=== PATIENT | male | born 1970 | race Caucasian/White ===

== ENCOUNTER 2022-03-28 11:40 | Outpatient (REF) | payer BC, SELFPAY ==
--- NOTE | ~2022-03-28 | XR_ITS ---
EXAMINATION: XR KNEE, RIGHT CLINICAL INFORMATION: Pain. COMPARISON: Radiograph dated 04/01/2012. TECHNIQUE: AP, lateral, tunnel, and sunrise views of the right knee. FINDINGS: Bony alignment and mineralization are normal. There is mild asymmetric narrowing of the medial joint space compartment. The lateral and patellofemoral joint space compartments are well-maintained. There is very mild tricompartment peripheral osteophyte formation. No fracture or dislocation is seen. There is a very small joint effusion. No foreign body is seen. XR/XR knee RT 4V IMPRESSION: 1. There is tricompartment osteoarthritic change of the right knee, most pronounced in the medial joint, where it is mild. 2. No fracture or dislocation is seen. There is a very small right knee joint effusion. 3. No significant varus or valgus configuration is seen bilaterally.
[2022-03-28 13:13] LABS: MANUAL DIFF FLAG NO
[2022-03-28 13:18] LABS: Basophils Percent Auto 0.3 % (0-2); Eosinophils Absolute Auto 0.1 X10*3/uL (0.0-0.4); Eosinophils Percent Auto 1.2 % (0-4); Hemoglobin 14.4 g/dl (14.0-18.0); Imm Gran Abs Auto 0.01 X10*3/uL (0.00-0.03); Imm Gran Pct Auto 0.2 % (0.0-0.4); Lymphocytes Absolute Auto 1.1 X10*3/uL (1.2-4.9); Lymphocytes Percent Auto 19.5 % (20-40); Mean Corpuscular HGB Conc 33.5 g/dl (31.0-36.0); Mean Corpuscular Hemoglobin 33.4 pg (27.0-33.0); Mean Corpuscular Volume 99.8 fL (80.0-98.0); Monocytes Absolute Auto 0.8 X10*3/uL (0.1-1.2); Neutrophils Absolute Auto 3.8 x10*3/uL (2.0-8.3); Neutrophils Percent Auto 65.8 % (45-73); Platelet Count 186 X10*3/uL (160-400); Red Blood Count 4.31 X10*6/uL (4.60-5.80); White Blood Count 5.8 X10*3/uL (4.8-10.8)
[2022-03-28 13:21] LABS: Appearance Urine Clear; Color Urine Yellow; Glucose Urine UA Negative (Negative); Leukocyte Esterase Urine Trace (Negative); Nitrite Urine Negative (Negative); PH 7.5 (5.0-9.0); UMIC TRIGGER UA YES; Urine Blood Negative (Negative); Urine Ketones 15 mg/dL (Negative); Urine Protein 100 (2+) mg/dL (Neg-Trace)
[2022-03-28 13:26] LABS: Bacteria Urine None Seen (None Seen); Hyaline Casts Urine 0-2 /LPF (0-2); RBC Urine 0-2 /HPF (0-2); Squamous Epithelial Cell Urine 0-2 /HPF (0-2); WBC Urine 0-5 /HPF (0-5)
[2022-03-28 14:05] LABS: Alanine Aminotransferase 116 U/L (0-40); Alkaline Phosphatase 54 U/L (39-117); Anion Gap 21 (12-20); Aspartate Amino Transferase 76 U/L (5-37); Blood Urea Nitrogen 14 mg/dL (9-16); Carbon Dioxide 24 mmol/L (22-29); Chloride 98 mmol/L (96-108); Cholesterol 315 mg/dL; Estimated Glomerular Filt Rate > 60; Glucose Fasting 94 mg/dL (60-99); HDL Cholesterol 97 mg/dL; LDL Cholesterol Calculated 204 mg/dl; Potassium 4.8 mmol/L (3.3-5.1); Sodium 138 mmol/L (135-145); Total Protein 7.4 g/dL (6.5-8.0); Triglycerides 70 mg/dL
[2022-03-28 14:14] LABS: Prostate Specific Antigen 0.89 ng/mL (<0.05-4.0)
== END 2022-03-28 11:41 | disposition home or self-care (01) ==
LOC: HO.HMGCLDS 11:40
PROVIDERS: Visit Provider Internal Medicine
DX: Z00.00 Encounter for general adult medical examination without abnormal findings (principal); Z12.5 Encounter for screening for malignant neoplasm of prostate; M25.561 Pain in right knee
CPT/HCPCS: 36415; 73564; 80053; 80061; 81001; 84153; 85025

== ENCOUNTER 2022-04-08 08:18 | Outpatient (REF) | payer BC, SELFPAY ==
--- NOTE | ~2022-04-08 | US_ITS ---
EXAMINATION: US ABDOMEN COMPLETE CLINICAL INFORMATION: Elevated LFTs. COMPARISON: Ultrasound abdomen complete 06/26/2015. CT abdomen and pelvis without contrast 04/21/2012. TECHNIQUE: Real-time imaging of the abdominal viscera. FINDINGS: PANCREAS: Normal. ABDOMINAL AORTA: The proximal, mid, and distal segments are normal in caliber. INFERIOR VENA CAVA: Visualized portions are normal. LIVER: The liver is normal in size. The liver contour is normal. There is diffuse increased liver parenchymal echogenicity, consistent with hepatic steatosis. No focal hepatic lesion. There is no intrahepatic biliary duct dilatation seen. GALLBLADDER: Gallbladder polyp. It is noted measuring about 3 mm in size. The gallbladder is physiologically distended without evidence of stones, sludge, wall thickening or pericholecystic fluid. COMMON BILE DUCT: Normal in caliber measuring 0.7 cm in diameter. RIGHT KIDNEY: Normal. No hydronephrosis. No renal calculi or focal parenchymal lesions. The kidney measures 11.8 cm in maximum dimension. LEFT KIDNEY: Normal. No hydronephrosis. No renal calculi or focal parenchymal lesions. The kidney measures 12.1 cm in maximum dimension. SPLEEN: Normal. The spleen measures 10.4 cm in maximum dimension. FREE FLUID: None. US/US abdomen complete IMPRESSION: 3 mm gallbladder polyp. Hepatic steatosis. In the low-risk category, no followup is recommended for polyps of 6 mm or smaller; followup US at 12 months is recommended for polyps measuring 7?9 mm; followup US at 6, 12, 24, and 36 months is recommended for polyps measuring 10?14 mm; and surgical consultation is recommended for polyps of 15 mm or larger.
== END 2022-04-08 08:19 | disposition home or self-care (01) ==
LOC: HO.HMGCX 08:18
PROVIDERS: Visit Provider Internal Medicine
DX: R74.01 Elevation of levels of liver transaminase levels (principal)
CPT/HCPCS: 76700

== ENCOUNTER 2022-05-07 09:48 | Outpatient (REF) | payer BC, SELFPAY ==
--- NOTE | ~2022-05-07 | XR_ITS ---
EXAMINATION: XR KNEE AP STANDING CLINICAL INFORMATION: Pain. COMPARISON: None available. TECHNIQUE: AP bilateral standing view of the knees was obtained. FINDINGS: Bony mineralization is normal. There is mild to moderate narrowing of the bilateral medial joint space compartments, and the bilateral lateral joint space compartments are well-maintained. There is a mild bilateral varus configuration. No fracture or dislocation is seen. The soft tissue planes are unremarkable, without gas or foreign body. XR/XR knee standing BI IMPRESSION: There is mild to moderate degenerative change of the medial joint space compartments of the bilateral knees. There is a secondary mild bilateral varus configuration.
== END 2022-05-07 09:49 | disposition home or self-care (01) ==
LOC: HO.HOSX 09:48
PROVIDERS: Visit Provider Physician Assistant
DX: M23.91 Unspecified internal derangement of right knee (principal); M17.11 Unilateral primary osteoarthritis, right knee
CPT/HCPCS: 73565

== ENCOUNTER 2022-05-27 14:23 | Outpatient (REF) | payer BC, SELFPAY ==
--- NOTE | ~2022-05-27 | MR_ITS ---
EXAMINATION: MR KNEE WITHOUT CONTRAST, RIGHT CLINICAL INFORMATION: Internal derangement. Patient reports meniscal surgery 10 years prior. COMPARISON: X-rays of the right knee April 2022. MRI of the right knee September 2012 and February 2012. TECHNIQUE: MRI of the knee without contrast was performed using routine sequences on a high-field scanner. FINDINGS: MENISCI: Medial Meniscus: There is attenuation of the body and posterior horn. There is some increased linear signal near the free edge of the posterior horn possibly extending to the free edge/articular surface. This could reflect postsurgical result but cannot exclude recurrent tear. This is not seen previously. Lateral Meniscus: Intact. LIGAMENTS: Cruciate: Intact. There is some enthesopathic cystic change with minimal edema in the tibia at the posterior cruciate ligament attachment. This is likely without clinical significance. Collateral: Intact. EXTENSOR MECHANISM: Intact. ARTICULAR CARTILAGE/BONE: Patellofemoral Compartment: Minimal surface cartilage heterogeneity in the median ridge of the patella and proximal trochlea indicative of minimal arthrosis unchanged. Medial Compartment: There are marginal osteophytes. There is cartilage thinning in the central weightbearing portion of the compartment particularly on the tibial side with some associated subchondral cystic change and edema. There is signal void within this area of articular loss compatible with gas likely reflecting vacuum phenomena. Findings indicative of rdin-os-dargscel arthrosis. Lateral Compartment: Normal. JOINT FLUID AND BURSAE: Normal. MR/MR knee RT wo con IMPRESSION: 1. Postsurgical changes in the medial meniscus. Findings suspicious but not definitive for recurrent tear of posterior horn. 2. Minimal patellofemoral arthrosis unchanged. 3. Goge-na-vytyibnf arthrosis of the medial compartment progressed compared to prior MRI September 2012, also identified on recent x-rays.
--- NOTE | ~2022-05-27 | XR_ITS ---
EXAMINATION: CR XR pre-MRI screening CLINICAL INFORMATION: Pre-MRI COMPARISON: None. TECHNIQUE: 3 views of the orbits FINDINGS: No radiopaque soft tissue foreign body about the orbits is seen. Visualized bony structures are unremarkable.. Hypoplasia of the left frontal sinus. XR/XR pre mri screening IMPRESSION: No radiopaque soft tissue foreign body.
== END 2022-05-27 14:24 | disposition home or self-care (01) ==
LOC: HO.MRI 14:23
PROVIDERS: PCP Internal Medicine; Visit Provider Physician Assistant
DX: M23.91 Unspecified internal derangement of right knee (principal)
CPT/HCPCS: 73721

== ENCOUNTER → 2022-06-10 14:12 | Outpatient (BNVA) | payer BC, SELFPAY | PROVIDERS: PCP Internal Medicine; Visit Provider Physician Assistant | DX: M23.91 Unspecified internal derangement of right knee (principal); M17.11 Unilateral primary osteoarthritis, right knee | CPT/HCPCS: 20610; J1040 ==

== ENCOUNTER 2022-11-11 11:15 | Outpatient (REF) | payer BC, SELFPAY ==
[2022-11-11 13:11] LABS: MANUAL DIFF FLAG NO
[2022-11-11 13:26] LABS: Basophils Percent Auto 0.4 % (0-2); Eosinophils Absolute Auto 0.1 X10*3/uL (0.0-0.4); Eosinophils Percent Auto 1.8 % (0-4); Hematocrit 42.6 % (42.0-52.0); Hemoglobin 14.5 g/dl (14.0-18.0); Imm Gran Abs Auto 0.02 X10*3/uL (0.00-0.03); Imm Gran Pct Auto 0.4 % (0.0-0.4); Lymphocytes Absolute Auto 1.2 X10*3/uL (1.2-4.9); Lymphocytes Percent Auto 21.2 % (20-40); Mean Corpuscular Hemoglobin 33.8 pg (27.0-33.0); Mean Corpuscular Volume 99.3 fL (80.0-98.0); Mean Platelet Volume 10.4 fL (9.4-12.4); Monocytes Absolute Auto 0.7 X10*3/uL (0.1-1.2); Monocytes Percent Auto 11.9 % (2-11); Neutrophils Absolute Auto 3.6 x10*3/uL (2.0-8.3); Neutrophils Percent Auto 64.3 % (45-73); Platelet Count 216 X10*3/uL (160-400); Red Blood Count 4.29 X10*6/uL (4.60-5.80); Red Cell Distribution Width 13.2 % (11.0-16.0); White Blood Count 5.6 X10*3/uL (4.8-10.8)
[2022-11-11 13:29] LABS: INTERNATIONAL NORM RATIO 0.8 (0.9-1.1); Prothrombin Time 10.2 SEC (11.1-13.3)
[2022-11-11 14:07] LABS: Alanine Aminotransferase 80 U/L (0-40); Albumin Level 4.9 g/dL (3.5-5.0); Alkaline Phosphatase 57 U/L (39-117); Aspartate Amino Transferase 62 U/L (5-37); Bilirubin Direct 0.2 mg/dL (0.0-0.5); Bilirubin Total 0.6 mg/dL (0.0-1.0); Iron 107 mcg/dL (45-160); Percent Iron Saturation 38 % (15-50); Total Iron Binding Capacity 279 mcg/dL (228-428); Total Protein 7.8 g/dL (6.5-8.0); Unsaturated Iron Binding 172 ug/dL
[2022-11-11 14:28] LABS: Ferritin 590 ng/mL (20-250)
[2022-11-12 08:54] LABS: Hepatitis A Antibody IgG REACTIVE (Nonreactive); ~Hepatitis A Antibody IgG 3.68 S/CO (0.00-0.99)
[2022-11-12 09:07] LABS: HBS Num1 2.61 mIU/mL (0-7.99); HBc Num1 0.08 S/CO (0.00-0.79); HBsAGNum1 0.37 S/CO (0.00-0.99); Hepatitis B Core Antibody Nonreactive (Nonreactive); Hepatitis B Surface Antigen Negative (Negative); ~HepC Num1 0.04 S/CO (0.00-0.79); ~Hepatitis B Surface Antibody NONREACTIVE (Nonreactive); ~Hepatitis C Antibody Nonreactive (Nonreactive)
[2022-11-12 17:13] LABS: Alpha 1 Anti-trypsin 140 mg/dL (83-199)
[2022-11-16 11:49] LABS: Anti Nuclear Antibody Screen NEGATIVE (NEGATIVE)
[2022-11-16 12:24] LABS: Smooth Muscle Antibody <20 U (<20)
[2022-11-17 00:09] LABS: FIB-ALT 69 U/L (9-46); FIB-Alpha-2-Macroglobulin 140 mg/dL (106-279); FIB-Apolipoprotein A1 250 mg/dL (94-176); FIB-GGT 77 U/L (3-95); FIB-Haptoglobin 157 mg/dL (43-212); FIB-Total Bilirubin 0.4 mg/dL (0.2-1.2); Liver Fibrosis Score 0.05; Liver Fibrosis Stage F0; Nec Inflam Act Grade A1; Nec Inflam Act Score 0.32
[2022-11-18 12:48] LABS: Mitochondrial Antibodies NEGATIVE (NEGATIVE)
== END 2022-11-11 11:16 | disposition home or self-care (01) ==
LOC: HO.HMGCLDS 11:15
PROVIDERS: PCP Internal Medicine; Visit Provider Internal Medicine
DX: R79.89 Other specified abnormal findings of blood chemistry (principal); K76.0 Fatty (change of) liver, not elsewhere classified
CPT/HCPCS: 36415; 80076; 81596; 82103; 82728; 83540; 85025; 85610; 86015; 86038; 86381; 86704; 86706; 86708; 86803; 87340

== ENCOUNTER 2023-01-04 09:22 | Day surgery (SDC) | payer BC, SELFPAY ==
[2022-12-31 14:39] VITALS: BMI 36.2
--- NOTE | 2023-01-04 09:11 | HO.ANESPROP2 ---
[facility] Active Problems Active Problems: All Active Problems (Updated 12/31/22 @ 14:38 by Katia Escamilla RN) Osteoarthritis of right knee (Acute) Internal derangement of right knee (Acute) Past Medical History Medical History Atrial fibrillation History of retained foreign body fully removed Hypertension Functional capacity: independent ambulation Family History Family history of problems with anesthesia: No Surgical History Surgical History Hx of arthroscopy of left knee History of cardiac radiofrequency ablation Hx of appendectomy Hx of right knee surgery History of Problems with Anesthesia: No Social History Social History Patient Tobacco Use Status: Former Tobacco user Quit Date: 30 yrs ago Tobacco use type: Cigarette Current occupational status: employed Current occupation: [employer] Meds Allergies Allergy/AdvReac Type Severity Reaction Status Date / Time No Known Allergies Allergy Verified 01/04/23 09:40 Active Medications: Current Medications Lactated Ringer's (Lr) 1,000 mls @ 50 mls/hr IVCONT .Q20H BLAYNE Home Medications Medication Instructions Recorded Confirmed Last Taken Type amlodipine 5 mg tablet 5 mg PO DAILY 05/07/22 12/31/22 01/04/23 09:00 History diltiazem HCl 360 mg 360 mg PO DAILY 05/07/22 12/31/22 Unknown History capsule,extended release 24 hr flecainide 100 mg tablet 100 mg PO Q12H 05/07/22 12/31/22 Unknown History aspirin 81 mg tablet,delayed 81 mg PO DAILY 12/31/22 12/31/22 12/25/22 History release multivitamin 1 tab PO DAILY 12/31/22 12/31/22 Unknown History Fish Oil PO 01/04/23 12/30/22 History Vitamin C 01/04/23 Unknown History apple cider vinegar 01/04/23 Unknown History magnesium glycinate 100 mg tablet 100 mg PO DAILY 01/04/23 01/04/23 Unknown History milk thistle 200 mg capsule 200 mg PO BID 01/04/23 01/04/23 Unknown History vitamin D3-vitamin K2 PO DAILY 01/04/23 Unknown History zinc 20 mg PO DAILY 01/04/23 01/04/23 Unknown History Exam Exam Date and Time: January 04, 2023 0911 Height,Weight and Vital Signs: Height 5 ft 6 in Weight 101.605 kg Airway Mallampati Class: II TM Dist: >3cm Neck ROM: Full Heart: RRR Assessment and Plan Assessment Anesthesia Assessment: Anesthesia Plan Discussed Final Anesthetic Review Family History of Problems with Anesthesia: No History of Problems with Anesthesia: No NPO: Yes ASA Class: III Final Preanesthetic Review: Meds/Allgs Chart Reviewed, Consent Obtained/Reviewed and Anes Risks/Benef Reviewed Patient Risk: Low Procedure Risk: Low Anesthetic Plan Anesthetic Plan: MAC: Disposition: Standard PACU
[2023-01-04 09:59] VITALS: BP 170/103; PULSE 85; RESP 16; TEMP 35.9; O2SAT 98
[2023-01-04 10:55] VITALS: BP 117/79; PULSE 81; RESP 16; TEMP 36.3; O2SAT 96
--- NOTE | 2023-01-04 10:56 | P.BOP_ITS ---
Brief Operative Note Date of Service: 01/04/23 Pre-op diagnosis: Screening Post-op diagnosis: other (Diverticulosis, Normal ileocolic anastomosis) Procedure: Colonoscopy to the anastomosis and SI Surgeon: Eddi Forbes MD Anesthesia: MAC Was an [employer] used for this Procedure?: No Estimated blood loss (mL): 0 Pathology: none sent Condition: stable Disposition: PACU
[2023-01-04 11:10] VITALS: BP 148/99; PULSE 70; RESP 16; O2SAT 96
--- NOTE | 2023-01-04 11:17 | OP_ITS ---
DATE OF SERVICE: 01/04/2023 SURGEON: Eddi Forbes MD INDICATIONS: The patient presents for evaluation of colorectal cancer screening. Full consent has been obtained from him for this, including risks of bleeding and perforation. PREOPERATIVE DIAGNOSIS: Colorectal cancer screening. POSTOPERATIVE DIAGNOSIS: PROCEDURE PERFORMED: Colonoscopy to the anastomosis and small bowel. ESTIMATED BLOOD LOSS: COMPLICATIONS: ANESTHESIA: Monitored anesthesia care. ASSISTANTS: SPECIMENS: POSTOPERATIVE DIAGNOSES: Colorectal cancer screening, sigmoid diverticulosis, internal hemorrhoids, normal ileocolic anastomosis. DESCRIPTION OF PROCEDURE: The patient was placed in the left lateral decubitus position. The digital rectal exam revealed no abnormalities. The Olympus video pediatric colonoscope was entered into the rectum and advanced easily to the level of the anastomosis. The anastomosis appeared normal. The small bowel was cannulated and appeared normal. The scope was withdrawn back in the colon. The entire anastomosis appeared normal. The scope was slowly withdrawn assessing all mucosal surfaces carefully. Preparation was excellent. I did not visualize any sign of polyps, colitis, nor angiodysplasia. There was a mild amount of sigmoid diverticulosis. In the rectum, scope was retroflexed visualizing small internal hemorrhoids but no other pathology. The rectal mucosa appeared normal. The scope was straightened and withdrawn from the patient. He tolerated the procedure well and was returned to the recovery area in stable condition. IMPRESSION: 1. Mild sigmoid diverticulosis. 2. Internal hemorrhoids. 3. Normal ileocolic anastomosis. PLAN: Given today's negative exam, I would recommend a followup coloscopy in 10 years. His recent liver workup was completely negative. I did review with him that his elevated LFTs are from fatty liver in relation to his weight and some alcohol use. He was advised to obviously try to avoid alcohol and lose weight. I would recommend he see me in 1 year for a followup visit in that regard. This has been discussed with his . MD ILIR Pierre/KVNG / [id number]
[2023-01-04 11:25] VITALS: BP 147/98; PULSE 63; RESP 18; TEMP 36.5; O2SAT 96
--- NOTE | 2023-01-04 12:53 | HO.POSTANES ---
Post Anesthesia Evaluation Post Anesthesia Evaluation Date of Service: 01/04/23 Vital Signs: Vital Signs Temp Pulse Resp BP Pulse Ox O2 Del Method 01/04/23 11:25 97.7 F 63 18 147/98 H 96 Room Air 01/04/23 11:10 70 16 148/99 H 96 Room Air 01/04/23 10:55 97.4 F 81 16 117/79 96 Room Air 01/04/23 09:59 96.7 F L 85 16 170/103 H 98 Room Air Anesthesia: Monitored Mental Status: Awake Pain Control: Satisfactory Nausea/Vomiting: None Hydration: Adequate Anesthesia-Related Issues: No Anes. Related Issues
== END 2023-01-04 11:50 | disposition home or self-care (01) ==
PROVIDERS: PCP Internal Medicine; Visit Provider Internal Medicine
PROC: 0DJD8ZZ Inspection of Lower Intestinal Tract, Via Natural or Artificial Opening Endoscopic (ICD-10-PCS; CPT 45378; principal; 2023-01-04 10:30)
DX: Z12.11 Encounter for screening for malignant neoplasm of colon (principal); K57.30 Diverticulosis of large intestine without perforation or abscess without bleeding; K64.8 Other hemorrhoids; K63.89 Other specified diseases of intestine; I10 Essential (primary) hypertension; K76.0 Fatty (change of) liver, not elsewhere classified; Z79.82 Long term (current) use of aspirin; Z79.899 Other long term (current) drug therapy; Z87.891 Personal history of nicotine dependence
CPT/HCPCS: 45378; J2704

== ENCOUNTER 2023-03-03 15:18 | Outpatient (REF) | payer BC, SELFPAY ==
--- NOTE | ~2023-03-03 | XR_ITS ---
EXAMINATION: XR LUMBOSACRAL SPINE CLINICAL INFORMATION: Low back pain. COMPARISON: CT abdomen/pelvis 04/21/2012 (report only). TECHNIQUE: Three views of the lumbosacral spine. FINDINGS: Degenerative changes are present at all levels. Most marked disc space narrowing seen at L2-L3, L3-L4 and L4-L5. There is endplate sclerosis and osteophyte formation. There is mild grade 1 anterolisthesis of L3 upon L4 with mild grade 1 retrolisthesis of L5 upon S1. Sclerotic changes are present at the SI joints. Degenerative changes are seen in the visualized hips, right greater than left. XR/XR lumbar spine 2-3V IMPRESSION: 1. Marked degenerative changes in the lumbosacral spine as described above. 2. Degenerative changes both hips, right greater than left.
== END 2023-03-03 15:19 | disposition home or self-care (01) ==
LOC: HO.HMGCX 15:18
PROVIDERS: Visit Provider Nurse Practitioner Family
DX: M99.03 Segmental and somatic dysfunction of lumbar region (principal)
CPT/HCPCS: 72100

== ENCOUNTER 2023-04-15 13:49 | Outpatient (REF) | payer BC, SELFPAY ==
--- NOTE | ~2023-04-15 | XR_ITS ---
EXAMINATION: XR CERVICAL SPINE CLINICAL INFORMATION: Neck pain. COMPARISON: Cervical spine of 10/14/2006 radiographs. TECHNIQUE: 5 views of the cervical spine. FINDINGS: Straightening of the normal cervical lordosis. C7 is poorly visualized and there is limited visualization due to overlying soft tissues. Multilevel cervical spondylosis with hypertrophic change and loss of disc space height notable at C4-C5 and C5-C6. Multilevel bilateral facet hypertrophy and neural foraminal encroachment most notable at C4-C5 and C5-C6. XR/XR cervical spine 4V IMPRESSION: Multilevel cervical spondylosis most notable at C4-C5 and C5-C6.
== END 2023-04-15 13:50 | disposition home or self-care (01) ==
LOC: HO.HMGCX 13:49
PROVIDERS: PCP Internal Medicine; Visit Provider Chiropractor
DX: M99.01 Segmental and somatic dysfunction of cervical region (principal)
CPT/HCPCS: 72050